=== PATIENT | female | born 1945 ===

== ENCOUNTER 2019-09-24 09:28 | Emergency (ER) | payer MEDICARE, BC ==
[2019-09-24 10:37] LABS: #Basophils 0.1 thou/uL (0.0-0.2); #Monocytes 0.3 thou/uL (0.11-0.59); #Neutrophils 3.3 thou/uL (1.40-6.50); %Basophils 1.5 % (0.0-1.0); %Lymphocytes 21.7 % (21.0-51.0); %Monocytes 5.8 % (0.0-10.0); Hemoglobin 11.8 g/dL (12.0-16.0); Mean Corpuscular HGB CONC 33.8 g/dL (32.0-36.0); Mean Corpuscular Hemoglobin 30.6 pg (27.0-31.0); Mean Corpuscular Volume 90.5 fL (78.0-98.0); Mean Platelet Volume 7.4 fL (7.4-10.4); Platelet Count 269 thou/uL (130-400); RBC Distribution Width 11.7 % (11.5-14.5); Red Blood Cell (RBC) Count 3.86 mill/uL (4.20-5.40); White Blood Cell (WBC) Count 4.7 thou/uL (4.8-10.8)
--- NOTE | 2019-09-24 10:45 | CT ---
EXAM: Brain CT scan Without contrast: HISTORY: Esophageal problem, shortness of breath, difficulty swallowing, weight loss COMPARISON: None FINDINGS: Atrophy and chronic white matter ischemic change. No focal mass or midline shift. No intra or extra-axial hemorrhage. The visualized sinuses and mastoids are clear of acute process. IMPRESSION: No mass or bleed or other significant acute intracranial process.
[2019-09-24 11:00] LABS: Acetaminophen Less than 6.0 mcg/mL (10.0-30.0); Alcohol Less than 10 mg/dL (Less than 10); Salicylate Less than 8.0 mg/dL (15.0-30.0)
[2019-09-24 11:01] LABS: ALT (SGPT) 30 U/L (8-55); AST (SGOT) 34 U/L (5-34); Albumin 4.4 g/dL (3.4-4.8); Alkaline Phosphatase 103 U/L (40-110); Anion Gap 11 mmol/L (10-20); BUN (Urea Nitrogen) 9 mg/dL (9.8-20.1); Calc. Creatinine Clearance 0 mL/min (70-130); Calcium 9.4 mg/dL (7.8-10.44); Carbon Dioxide 26 mmol/L (23-31); Chloride 109 mmol/L (98-107); Estimated GFR-MDRD 68; Globulin 2.1 g/dL (2.4-3.5); Glucose 92 mg/dL (83-110); Potassium 3.6 mmol/L (3.5-5.1); Protein, Total 6.5 g/dL (6.0-8.3); Sodium 142 mmol/L (136-145)
[2019-09-24] MEDS ORDERED: Iopamidol-370 76% 500 ML 1 ML ONE (11:06)
[2019-09-24 11:09] LABS: Amphetamine Not Detected (NotDetected); Barbiturates Screen Not Detected (NotDetected); Benzodiazepine Screen Not Detected (NotDetected); Cocaine Metabolite Screen Not Detected (NotDetected); Medtox Control Line Valid? VALID (VALID); Medtox Reader # READER 4; Methadone Not Detected (NotDetected); Methamphetamine Not Detected (NotDetected); Opiate Screen Not Detected (NotDetected); Oxycodone Screen Not Detected (NotDetected); Phencyclidine (PCP) Not Detected (NotDetected); THC/Cannabinoid Screen Not Detected (NotDetected); Tricyclic Screen Not Detected (NotDetected)
--- NOTE | 2019-09-24 11:27 | RAD ---
2 view chest: [09/24/2019] Comparison:None available HISTORY: Intermittent esophageal problems, trouble swallowing with shortness of breath FINDINGS: Heart and mediastinal contours are grossly unremarkable. No pneumothorax or pleural fluid. No focal consolidation or alveolar edema. There is mild increased linear interstitial density with pulmonary hyperinflation. IMPRESSION: No acute findings.
--- NOTE | 2019-09-24 13:40 | CT ---
CT of the neck: 09/24/2019 COMPARISON: None HISTORY: Weakness with difficulty swallowing TECHNIQUE: Axial CT imaging at 2.5 mm intervals through the neck with IV contrast. Coronal and sagitt al reformatted imaging obtained. FINDINGS: The imaged lung apices are unremarkable. Partially imaged brain parenchyma unremarkable. The imaged paranasal sinuses and mastoid air cells are well aerated. The retroantral fat and parapharyngeal fat is clear. The parotid and submandibular glands are within normal limits. The tonsillar pillars, hyoid bone, epiglottis and preepiglottic fat, thyroid cartilage, cricoid carti uri, and hyoid bone appear unremarkable. The thyroid gland is heterogeneous in mildly enlarged diffusely. The vascular structures appear patent. No lymphadenopathy is noted within the neck. There is degenerative change at the atlantoaxial interspace. No worrisome lytic or blastic bone lesio n. IMPRESSION: No mass lesion or lymphadenopathy noted.
--- NOTE | 2019-09-24 13:49 | CT ---
Exam: Abdomen and pelvic CT scan with IV contrast: HISTORY: History of Crohn's disease, weakness, difficulty swallowing weight loss FINDINGS: Minimal posterior pleural-based parenchymal changes, having more chronic appearance. The liver appear s unremarkable. Status post cholecystectomy. Upper range of normal size common bile duct. Pancreas appears unremarkable. Spleen and adrenal glands are unremarkable. There are are several areas of felton ical scarring in the upper pole laterally of the left kidney with associated circumscribed areas of calcification within these cortical scars. No renal calculi or acute obstruction. Extensive postsu rgical changes noted throughout the abdomen particularly more so on the right side. There is some scattered areas of abnormally dilated small bowel loops with some scattered areas of small bowel wall thickening. There are also multifocal scattered areas of colonic wall thickening. This appearance certainly could be consistent with history of Crohn's disease and granulomatous colitis. There does n ot appear to be an overt high-grade bowel obstruction. No significant free intraperitoneal fluid. No evidence for abscess. Small bilateral inguinal fat-containing hernias. IMPRESSION: Abnormal multifocal colonic and small bowel wall thickening, these findings certainly could be relate d to the history of Crohn's disease and granulomatous colitis. Several areas of left renal scarring. Other findings as above.
== END 2019-09-24 15:23 | disposition home or self-care (01) ==
LOC: ERS 09:28
DX: R53.1 Weakness (principal)
CPT/HCPCS: 36415; 70450; 70491; 71046; 74177; 80053; 80306; 80307; 83880; 85025; 85652; 86140; 93005; 96360; Q9967

== ENCOUNTER 2022-11-04 11:22 | Outpatient (CLI) | payer MEDICARE, OTHER ==
[~2022-11-04 11:22] MED LIST: Magnevist 469MG/ML 20 ML VIAL ONE
== END 2022-11-04 11:23 | disposition home or self-care (01) ==
LOC: MRI 11:22
PROVIDERS: ATTEND Physician Assistant Medical
DX: K50.90 Crohn's disease, unspecified, without complications (principal); K62.89 Other specified diseases of anus and rectum; K56.699 Other intestinal obstruction unspecified as to partial versus complete obstruction
CPT/HCPCS: 74183; 82565; J1611; A9579